=== PATIENT | female | born 1985 | race Hispanic/Latino ===

== ENCOUNTER 2020-10-14 21:03 | Emergency (ER) | payer SELFPAY ==
[~2020-10-14] VITALS: Ht 152.4 cm; Wt 63.5 kg
[2020-10-14] MEDS ORDERED: POLYTRIM EYE DR10 ML OS (21:26)
== END 2020-10-14 21:51 | disposition home or self-care (01) ==
LOC: FSED 21:30
DX: H10.9 Unspecified conjunctivitis (principal)
CPT/HCPCS: 99282